=== PATIENT | male | born 1990 | race Caucasian/White ===

== ENCOUNTER 2021-01-30 19:31 | Emergency (ER) | payer OTHER ==
[2021-01-30] MEDS ORDERED: Take Home: Amoxicillin 500 MG Cap, 2 Cap Pack PO ONE (19:44)
--- NOTE | 2021-01-30 19:52 | EDM.PDOC ---
ED HPI GENERAL MEDICAL PROBLEM - General Chief Complaint: ENT Problem Stated Complaint: swallowing pain Time Seen by Provider: 01/30/21 19:35 Source of Information: Reports: Patient History Limitations: Reports: No Limitations - History of Present Illness INITIAL COMMENTS - FREE TEXT/NARRATIVE: Edwin is a 30 year old male who presents to ER with complaints of a sore throat and swelling to his neck. has had a scratchy throat for a couple days, more sore today. Started out this am with feeling "like a hot poker to the left side of neck" but has gotten worse over the course of the day. He noted the swelling to the left side of his neck to be very tender. Appetite has been decreased. No fevers. Denies any known exposure to strep, mono or covid. Denies sinus congestion, ear pain, shortness of breath, cough, nausea or vomiting. Patient's blood pressure is high on arrival. is supposed to be taking Lisinopril but stops often when he gets it under control. Has the medicine at home, has not taken it for some time. Onset: Gradual Duration: Hour(s):, Getting Worse Location: Reports: Neck Quality: Reports: Sharp, Stabbing Severity: Moderate Associated Symptoms: Reports: Loss of Appetite. Denies: Confusion, Chest Pain, Cough, Fever/Chills, Nausea/Vomiting, Shortness of Breath throat Pain Score (Numeric/FACES): 5 - Related Data Allergies Allergy/AdvReac Type Severity Reaction Status Date / Time No Known Allergies Allergy Verified 01/30/21 19:32 Home Meds: Home Meds . [No Known Home Meds] 01/30/21 [History] Past Medical History Cardiovascular History: Reports: Hypertension Social & Family History - Family History Family Medical History: No Pertinent Family History - Tobacco Use Tobacco Use Status *Q: Current Every Day Tobacco User Years of Tobacco use: 17 Packs/Tins Daily: 1 - Recreational Drug Use Recreational Drug Use: No ED ROS ENT - Review of Systems Review Of Systems: See Below Constitutional: Reports: Malaise. Denies: Fever, Chills, Weakness, Fatigue HEENT: Reports: Throat Pain. Denies: Ear Pain, Sinus Problem Respiratory: Denies: Shortness of Breath, Cough Cardiovascular: Denies: Chest Pain, Edema, Lightheadedness Endocrine: Denies: Fatigue GI/Abdominal: Reports: Decreased Appetite. Denies: Abdominal Pain, Nausea, Vomiting : Reports: No Symptoms Musculoskeletal: Reports: No Symptoms Skin: Reports: No Symptoms Neurological: Reports: No Symptoms ED EXAM, ENT - Physical Exam Exam: See Below Exam Limited By: No Limitations General Appearance: Alert, WD/WN, No Apparent Distress Ears: Normal External Exam, Normal TMs Nose: Normal Inspection, Normal Mucousa, No Blood Mouth/Throat: Tonsillar Erythema, Tonsillar Exudates, Tonsillar Swelling Head: Normocephalic Neck: Normal Inspection, Supple, Lymphadenopathy (L) Respiratory/Chest: No Respiratory Distress, Lungs Clear, Normal Breath Sounds Cardiovascular: Regular Rate, Rhythm Neurological: Alert, Oriented Skin: Warm, Dry Course - Vital Signs Last Recorded V/S: Last Vital Signs Temp Pulse 101 H 01/30/21 19:33 Resp 18 01/30/21 19:33 BP 190/114 H 01/30/21 19:33 Pulse Ox 96 01/30/21 19:33 - Orders/Labs/Meds Meds: Medications Discontinued Medications Generic Name Dose Route Start Last Admin Trade Name Daina PRN Reason Stop Dose Admin Amoxicillin 3 packet 01/30/21 19:44 01/30/21 19:51 Take Home: Amoxicillin 500 Mg Cap, 2 Cap Pack PO 01/30/21 19:45 3 packet ONETIME ONE Administration Departure - Departure Time of Disposition: 19:53 Disposition: Home, Self-Care 01 Condition: Good Clinical Impression: Tonsillitis - Discharge Information *PRESCRIPTION DRUG MONITORING PROGRAM REVIEWED*: No *COPY OF PRESCRIPTION DRUG MONITORING REPORT IN PATIENT VIN: No Instructions: Tonsillitis, [id number] Forms: ED Department Discharge Additional Instructions: 1. Push fluids 2. Alternate tylenol and ibuprofen for fever and discomfort 3. Amoxicillin 875 mg twice a day for 10 days. will need to take Amoxicillin 500 mg three times a day until fill script on Monday 4. Resume Lisinopril 5. Call with any questions or concerns. Sepsis Event Note (ED) - Evaluation Sepsis Screening Result: No Definite Risk - Focused Exam Vital Signs: Vital Signs Pulse Resp BP Pulse Ox 01/30/21 19:33 101 H 18 190/114 H 96
== END 2021-01-30 20:03 | disposition home or self-care (01) ==
LOC: CC.ED 19:31
DX: J03.90 Acute tonsillitis, unspecified (principal); Z72.0 Tobacco use
CPT/HCPCS: 99283; A9270